=== PATIENT | male | born 1945 | race Caucasian/White ===

== ENCOUNTER → 2017-11-08 | Outpatient (CLI) | payer MEDICARE, OTHER ==
--- NOTE | 2017-11-08 16:41 | Diagnostic Imaging Report ---
PROCEDURE: US carotid duplex, bilateral. TECHNIQUE: Multiple real-time grayscale images were obtained over the carotid arteries in various projections, bilaterally. Additional duplex Doppler and color Doppler images were also obtained. INDICATION: Coronary artery disease and carotid stenosis. FINDINGS: There are no focally elevated velocities in the right common carotid artery or right internal carotid artery. ICA/CCA ratio on the right is 1.1. Grayscale images demonstrate minimal plaque. There is antegrade flow in the right vertebral artery. There are markedly elevated velocities in the left internal carotid artery up to 402 cm/s. The ICA/CCA ratio on the right is 4.8. Grayscale images demonstrate moderate to severe plaque. There is antegrade flow in the left vertebral artery. IMPRESSION: 1. Findings compatible with a greater than 90% stenosis of the left internal carotid artery. 2. No significant stenosis on the right. Results were called to Dr. Hernandez by the oil analyst at 4:10 PM. Parameters based on the consensus panel [employer] and Doppler ultrasound criteria published March 2003, Radiology, Volume 229. DOPPLER (peak systolic velocity M/S Right Left CCA .81 .83 ICA Proximal .72 .46 ICA Mid .86 4.02 ICA Distal 1.34 .90 RATIO 1.1 4.8 ECA 1.64 1.83 VERT .39 .53 Dictated by: Dictated on workstation # [id number]
== END ==
LOC: RAD 14:52
PROVIDERS: ATTEND Family Medicine
DX: I65.22 Occlusion and stenosis of left carotid artery (principal); I25.10 Atherosclerotic heart disease of native coronary artery without angina pectoris
CPT/HCPCS: 93880